=== PATIENT | male | born 1940 | race African-American/Black ===

== ENCOUNTER 2017-10-29 15:14 | Inpatient (IN) | payer BC ==
[~2017-10-29 15:14] MED LIST: ISOVUE-370 76%-LOCM 1 ML ONE; Iopamidol 370 76% 50 ML VIAL FS ONE
[2017-10-29 17:18] LABS: #Basophils 0.1 thou/uL (0.0-0.2); #Lymphocytes 1.2 thou/uL (1.20-3.40); #Monocytes 0.8 thou/uL (0.11-0.59); #Neutrophils 11.3 thou/uL (1.40-6.50); %Basophils 0.4 % (0.0-1.0); %Eosinophils 0.1 % (0.0-10.0); %Lymphocytes 8.7 % (21.0-51.0); %Monocytes 6.1 % (0.0-10.0); %Neutrophils 84.7 % (42.0-75.0); Hemoglobin 13.5 g/dL (14.0-18.0); Mean Corpuscular HGB CONC 34.7 g/dL (32.0-36.0); Mean Corpuscular Volume 89.3 fl (80.0-94.0); Platelet Count 250 thou/uL (130-400); RBC Distribution Width 10.9 % (11.5-14.5); Red Blood Cell (RBC) Count 4.35 mill/uL (4.70-6.10); White Blood Cell (WBC) Count 13.3 thou/uL (4.8-10.8)
[2017-10-29 17:41] LABS: ALT (SGPT) 7 U/L (8-55); AST (SGOT) 16 U/L (5-34); Albumin 4.4 g/dL (3.4-4.8); Alkaline Phosphatase 80 U/L (40-150); Anion Gap 15 mmol/L (10-20); BUN (Urea Nitrogen) 12 mg/dL (8.4-25.7); Bilirubin, Total 1.4 mg/dL (0.2-1.2); Calc. Creatinine Clearance 0 mL/min (70-130); Calcium 10.2 mg/dL (7.8-10.44); Carbon Dioxide 29 mmol/L (23-31); Chloride 99 mmol/L (98-107); Estimated GFR-MDRD 68; Globulin 3.8 g/dL (2.4-3.5); Glucose 113 mg/dL (83-110); Lipase 19 U/L (8-78); Potassium 3.6 mmol/L (3.5-5.1); Protein, Total 8.2 g/dL (5.8-8.1); Sodium 139 mmol/L (136-145)
[2017-10-29] MEDS ORDERED: Morphine 4 MG/ML VIAL ONE (18:32)
[2017-10-29 18:48] LABS: Bilirubin Negative (Negative); Blood, Urine Small (Negative); Clarity CLEAR (Clear); Glucose, Urine (Dipstick) Negative (Negative); Leukocyte Negative (Negative); Nitrite Negative (Negative); Protein, Urine (Dipstick) Trace mg/dL (Neg-Trace); Specific Gravity, Urine 1.013 (1.002-1.036); Urobilinogen 0.2 mg/dL (0.2-1.0); pH, Urine 6.5 (5.0-9.0)
[2017-10-29 18:51] LABS: Bacteria/HPF None Seen HPF (None Seen); Pathc Cast-AUWi Flag 1.59 (0-2.49); Squamous Epithelial 0-3 HPF (0-3); WBC/HPF 0-3 HPF (0-3); Yeast-AUWi Flag 7.7 (0-25.0)
[2017-10-29 18:56] LABS: CKMB 0.4 ng/mL (0-6.6); Troponin I Less than 0.010 ng/mL (< 0.028)
[2017-10-29] MEDS ORDERED: Piperacillin/Tazobactam 3.375 GM VIAL ONE (21:06)
--- NOTE | 2017-10-29 22:40 | CT ---
ABDOMEN AND PELVIC CT SCAN WITH IV CONTRAST: 10/29/17 HISTORY: 77-year-old male with history of lower abdominal pain since last night. The lung bases are clear. The liver, gallbladder, pancreas, spleen, adrenal glands, are unremarkable. Both kidneys demonstrate what appear to be some cortical scarring with a cyst involving the upper po le of the right kidney measuring 2.2 cm. There is evidence for acute appendicitis with a very abnorma lly distended enlarged appendix up to almost 2 cm in maximum diameter with a prominent amount of richard appendiceal fat stranding and some fluid in the right colonic gutter and in the upper right pelvis bu t no evidence of a definable drainable abscess. No evidence for other significant acute process. IMPRESSION: Findings of acute appendicitis. Other findings as above. Findings discussed with Dr. Garcia in the ER at 8:44 p.m. Code CARLO POS: BILL
[2017-10-29] MEDS ORDERED: Sodium Chloride 0.9% 1,000 ML IV SCH (22:58)
[2017-10-29] MEDS ORDERED: Ondansetron HCl/PF 4 MG/2 ML Vial IVP PRN (22:58)
[2017-10-29] MEDS ORDERED: Ondansetron ODT 4 MG TAB SL PRN (22:58)
[2017-10-29] MEDS ORDERED: Morphine 2 MG/ML SYRINGE SLOW IVP PRN (23:02)
[2017-10-29] MEDS ORDERED: Ketorolac Tromethamine 30 MG/ML VIAL IVP SCH (23:15)
[2017-10-30] MEDS: Piperacillin/Tazobactam 3.375 GM in Sodium Chloride 0.9% 100 ML IVPB SCH ×2 (02:29→09:13)
[2017-10-30] MEDS ORDERED: Ondansetron HCl/PF 4 MG/2 ML Vial IVP PRN (08:09)
[2017-10-30] MEDS ORDERED: Bupivacaine HCl 0.5%/Epinephrine 1:200,000/PF 30 ml Vial ONE (08:46)
[2017-10-30] MEDS ORDERED: Fentanyl 250 MCG/5 ML VIAL ONE (08:47)
[2017-10-30] MEDS ORDERED: Bupivacaine PF 0.5% 30 ML VIAL ONE (08:58)
[2017-10-30] MEDS ORDERED: Ibuprofen 600 MG TAB PO PRN (09:55)
[2017-10-30] MEDS ORDERED: traMADol HCl 50 MG TAB PO PRN ×2 (09:55)
[2017-10-30] MEDS ORDERED: Acetaminophen 500 MG TAB PO PRN (09:55)
[2017-10-30] MEDS ORDERED: SUGAMMADEX SODIUM 200 MG/2 ML VIAL ONE (10:05)
--- NOTE | 2017-10-30 12:00 | HP ---
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 He developed right lower epigastric danica n localizing to his right lower quadrant yesterday, presented to the emergency room late last night a nd had a white count of 13,000. He underwent a CAT scan of the abdomen and pelvis, demonstrated appe ndicitis otherwise unremarkable. He is admitted overnight for intravenous antibiotics and fluids. ALLERGIES: None. TOBACCO: None. ALCOHOL: Rarely socially. MEDICATIONS: Amlodipine 10 mg a day, atorvastatin 40 mg daily, Lumigan ophthalmic drops, vitamin B12 daily, Colace daily, Timolol ophthalmic drops, ferrous sulfate 325 b.i.d., fluticasone suspension na peg spray as needed for allergies, hydrochlorothiazide 25 mg a day, loratadine 10 mg a day, losartan 25 mg a day, pilocarpine ophthalmic drops, potassium chloride, triamcinolone cream. PAST SURGICAL HISTORY: Eye surgery. PAST MEDICAL HISTORY: Hypertension, elevated cholesterol. REVIEW OF SYSTEMS: Ten point noncontributory. SOCIAL HISTORY: He had a colonoscopy 3 weeks ago that was normal. PHYSICAL EXAMINATION: VITAL SIGNS: 80 kilograms, 72, 19, 99.3 degrees. HEENT: Unremarkable. LUNGS: Clear to auscultation. CARDIAC: Regular rate and rhythm without murmur or gallop. ABDOMEN: Soft, tenderness in right lower quadrant, guarding, rebound. EXTREMITIES: Unremarkable. LABORATORIES: As noted above. White count elevated. Hemoglobin normal. ASSESSMENT AND PLAN: Acute appendicitis. Recommend laparoscopic video appendectomy. Risk of infect ion, bleeding, visceral injury, possibly open procedure discussed, he consents. PLAN: Discharge home postoperatively.
--- NOTE | 2017-10-30 12:06 | OP ---
DATE OF PROCEDURE: 10/30/2017 PREOPERATIVE DIAGNOSIS: Acute appendicitis. POSTOPERATIVE DIAGNOSIS: Acute appendicitis. PROCEDURE PERFORMED: Laparoscopic video appendectomy. SURGEON: Dr. Steel. ANESTHESIA: General. Local 0.5% Marcaine with epinephrine, 30 mL. ESTIMATED BLOOD LOSS: Less than 5 mL. DESCRIPTION OF PROCEDURE: The patient was taken to the operating room where under general anesthesia , Lopez catheter was placed at the beginning of the procedure, removed at the end. Abdomen was clipp ed of hair, prepared with ChloraPrep, draped in routine fashion. A 0.5% Marcaine with epinephrine in filtrated into skin and subcutaneous tissue about each port site, total volume 30 mL used. Infraumbi lical incision made and pneumoperitoneum to 15 mmHg obtained with the Veress needle, replacing it wit h a 5 port and video laparoscope inserted. Right lateral subcostal incision made and a suprapubic in cision made and a 5 mm port and a 12 mm port placed respectfully under laparoscopic visualization and the appendix noted to be acutely inflamed and mesoappendix taken down with the LigaSure. The stump of the appendix divided the cecal stump with Endo blue load PRESTON stapler. Appendix removed and submit swetha through the Pathology. Good hemostasis ensured with the cautery and LigaSure. Irrigant and pneu moperitoneum evacuated. Suprapubic fascia approximated with 0 Vicryl. All skin incisions approximat ed with interrupted subdermal 4-0 Monocryl and DermaGlue applied.
--- NOTE | 2017-10-30 12:13 | DIS ---
DATE OF ADMISSION: 10/29/2017 DATE OF DISCHARGE: 10/30/2017 PROCEDURES THIS HOSPITALIZATION: CT scan of abdomen and pelvis in the emergency room. Laparoscopic video appendectomy. DIAGNOSES: Acute appendicitis, hypertension, elevated cholesterol. 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 Eduard Hamm for hypertension, elevated cholesterol. The patient pre sents with history and exam for appendicitis, confirmed by CAT scan, admitted overnight for intraveno us fluids and antibiotics, taken to the operating room for laparoscopic video appendectomy. Postoper atively, did well, discharged home with oral analgesics, Tylenol, Motrin [id number] and as need ed Ultram #21 refill prescribed. Diet and activity as tolerated. Follow up in my office in 2 weeks.
[2017-10-30] MEDS ORDERED: Ondansetron HCl/PF 4 MG/2 ML Vial ONE (15:51)
[2017-10-30] MEDS ORDERED: Propofol 200 MG/20 ML VIAL ONE (15:51)
[2017-10-30] MEDS ORDERED: Glycopyrrolate 0.2 MG/ML 5 ML SYRINGE ONE (15:51)
[2017-10-30] MEDS ORDERED: Lidocaine 1% PF 5 ML VIAL ONE (15:51)
[2017-10-30] MEDS ORDERED: PHENYLEPHRINE-NS 100 MCG/ML 10 ML SYRINGE ONE (15:51)
[2017-10-30] MEDS ORDERED: Dexamethasone 20 MG/5 ML VIAL ONE (15:51)
[2017-10-30 17:25] VITALS: BP 121/69; TEMP 98
[2017-10-30] MEDS ORDERED: Sodium Chloride 0.9% 1,000 ML IV SCH (18:45)
[2017-10-30] MEDS ORDERED: Dorzolamide HCl/Timolol Maleate 2%/0.5% Ophth Soln 10 ml Bottle EA EYE SCH (21:00)
[2017-10-30] MEDS ORDERED: Triamcinolone 0.1% Dental Paste 5 GM TUBE TOP SCH (21:00)
[2017-10-30] MEDS ORDERED: Non-Formulary Item 1 EACH (Bimatoprost [Lumigan 0.01% Ophth Soln] 1 DROP) EA EYE SCH (21:00)
[2017-10-30] MEDS ORDERED: Latanoprost 0.005% Ophth Soln 2.5 ml Bottle EA EYE SCH (21:00)
[2017-10-30] MEDS ORDERED: Docusate 100 MG CAP PO SCH (21:00)
[2017-10-31] MEDS ORDERED: Ferrous Sulfate 325 MG TAB PO SCH (08:00)
[2017-10-31] MEDS ORDERED: Cyanocobalamin (Vitamin B-12) 1,000 MCG TAB PO SCH (09:00)
[2017-10-31] MEDS ORDERED: Losartan 25 MG TAB PO SCH (09:00)
[2017-10-31] MEDS ORDERED: Loratadine 10 MG TAB PO SCH (09:00)
[2017-10-31] MEDS ORDERED: Hydrochlorothiazide 25 MG TAB PO SCH (09:00)
[2017-10-31] MEDS ORDERED: Amlodipine 10 MG TAB PO SCH (09:00)
[2017-10-31] MEDS ORDERED: Atorvastatin Calcium 40 MG TAB PO SCH (09:00)
[2017-10-31] MEDS ORDERED: PILOCARPINE 2% EA EYE SCH (09:00)
--- NOTE | 2017-11-02 00:59 | EKG ---
Test Reason : Blood Pressure : / mmHG Vent. Rate : 078 BPM Atrial Rate : 078 BPM P-R Int : 166 ms QRS Dur : 098 ms QT Int : 392 ms P-R-T Axes : 000 -31 056 degrees QTc Int : 446 ms Sinus rhythm with Premature atrial complexes Left axis deviation No STEMI Abnormal ECG Confirmed by KALI LIVE ([id number]), manuscript editor ETHAN MAYA ([id number]) on 11/02/2017 12:58:43 AM Referred By: Confirmed By:KALI LIVE
== END 2017-10-30 18:35 | disposition home or self-care (01) | DRG 343 ==
LOC: ERS 15:14 → SURG A 22:50
PROVIDERS: ADMIT Specialist; ATTEND Specialist
PROC: 0DTJ4ZZ Resection of Appendix, Percutaneous Endoscopic Approach (ICD-10-PCS; principal; 2017-10-30)
DX: K35.80 Unspecified acute appendicitis (principal); E78.00 Pure hypercholesterolemia, unspecified; I10 Essential (primary) hypertension
CPT/HCPCS: 36415; 74177; 80053; 81003; 81015; 82553; 83605; 83690; 84484; 85025; 86850; 86900; 86901; 87040; 88304; 93005; J0131; J0670; J1100; J1885; J2001; J2270; J2405; J2543; J2704; J3010; J7050; S0020